=== PATIENT | male | born 1980 | race Caucasian/White ===

== ENCOUNTER 2025-09-14 10:52 | Emergency (ER) | payer OTHER, SELFPAY ==
[2025-09-14 10:56] VITALS: BP 154/89; PULSE 89; TEMP 37; O2SAT 97; BMI 32.1
--- NOTE | 2025-09-14 11:00 | XR_ITS ---
The [address] [address] Patient Name: PRETTY LEROY MRN: [id number] date: 1980 Sex: M Assigned Patient Location: ED.MAIN Current Patient Location: Accession/Order Number: [id number] Exam Date: 09/14/2025 11:08 Report Date: 09/14/2025 11:31 At the request of: JASWANT LEMOS MD Procedure: XR foot RT min 3V RIGHT FOOT - 3 views CLINICAL DATA: Atraumatic pain, swelling and erythema at the first metatarsal phalangeal joint. COMPARISON: None AP, lateral and oblique views were obtained. There is no evidence of fracture or dislocation. There are no significant soft tissue abnormalities. XR/XR foot RT min 3V IMPRESSION: NO ACUTE BONY FINDINGS. Impression dictated by: Rae Bear M.D. 09/14/2025 11:31 AM Dictation Location: [place] [address] Electronically authenticated by: [id number] Y Date: 09/14/2025 11:31
--- NOTE | 2025-09-14 11:02 | ED.GENADUL1 ---
HPI HPI - General Adult General Chief complaint: Extremity Problem, Nontraumatic Stated complaint: R FOOT PAIN Time Seen by Provider: 09/14/25 10:53 Source: patient Mode of arrival: walk-in Limitations: no limitations History of Present Illness HPI narrative: 45-year-old male presents to the emergency department for pain to the right great toe. It hurts at the base and there was no injury and he has had it for a few days. He has never had gout before or symptoms like this. The pain is moderate and it is sensitive to touch. Related Data Previous Rx's ?Medication ?Instructions ?Recorded indomethacin 25 mg capsule See Rx Instructions .Route 09/14/25 .COMPLEX #40 caps Allergies Allergy/AdvReac Type Severity Reaction Status Date / Time opioids AdvReac Severe intolerance Uncoded 09/14/25 11:02 Opioid HPI Opioid Management Most Recent Opioid Data: Last Pain Scale 8 Today, 10:56 Review of Systems ROS Narrative A ten point review of systems is negative except as noted above. PFSH PFSH Social History Little interest or pleasure in doing things: not at all Feeling down, depressed, or hopeless: not at all Exam Narrative Exam Narrative: Nurses note and vital signs reviewed General:The patient appears well and in no apparent distress.Patient is resting comfortably on cart. Skin:Warm, dry, no pallor noted.There is no rash noted. Head:Normocephalic, atraumatic Eye: Normal conjunctiva, no drainage Ears, Nose, Mouth, and Throat: oral mucosa is moist. Nares patent. Cardiovascular:Regular Rate and Rhythm Respiratory:Patient is in no distress, no accessory muscle use GI: Soft and nontender Musculoskeletal: There is erythema and tenderness of the the first MTP joint of the right foot. No break in the skin. No open area or drainage. Dorsalis pedis pulse 2+ Neurological:A&O, normal speech Psychiatric:Cooperative Constitutional Vital Signs, click to edit/add: Last Vital Signs Temp 98.6 F 09/14/25 10:56 Pulse 89 09/14/25 10:56 Resp 20 09/14/25 10:56 BP 154/89 H 09/14/25 10:56 Pulse Ox 97 09/14/25 10:56 O2 Del Method Room Air 09/14/25 10:56 Course Vital Signs Vital signs: Vital Signs Temperature 98.6 F 09/14/25 10:56 Pulse Rate 89 09/14/25 10:56 Respiratory Rate 20 09/14/25 10:56 Blood Pressure 154/89 H 09/14/25 10:56 Pulse Oximetry 97 09/14/25 10:56 Oxygen Delivery Method Room Air 09/14/25 10:56 Temperature 98.6 F 09/14/25 10:56 Pulse Rate 89 09/14/25 10:56 Respiratory Rate 20 09/14/25 10:56 Blood Pressure 154/89 H 09/14/25 10:56 Pulse Oximetry 97 09/14/25 10:56 Oxygen Delivery Method Room Air 09/14/25 10:56 Medical Decision Making MDM Narrative Medical decision making narrative: X-ray of the foot on my interpretation shows no acute findings. My clinical impression is that he has gout. He has intolerance to narcotics and is prescribed indomethacin. He will follow-up with podiatry. Treatment diagnosis and follow-up were discussed with the patient. Differential Diagnosis Differential Diagnosis: Gout, toe sprain, fracture, arthritis Imaging Data Foot x-ray: My impression: No acute findings Discharge Plan Discharge Chief Complaint: Extremity Problem, Nontraumatic Clinical Impression: Gout Patient Disposition: Home, Self-Care Time of Disposition Decision: 11:21 Condition: Good Mode of Transportation: Private Vehicle Prescriptions / Home Meds: New indomethacin 25 mg capsule See Rx Instructions .ROUTE .COMPLEX Qty: 40 0RF Rx Instructions: 2 p.o. every 8 hours for 3 days then 1 p.o. every 8 hours for 3 days then 1 p.o. every 8 hours as needed Print Language: Hungarian Instructions: Low Purine Diet (ED), Gout (ED) Referrals: RAYRAY TAN [Primary Care Provider, Family Practice] - 1 week Raffi Mondragon DPM [Physician, Podiatry]
--- OUTSIDE RECORDS SUMMARY | 2025-09-14 11:08 | XMS_ITS | Encounter Summary ---
Author Organization [facility] s tem Address [facility] [address] [place] [address] Care Team Providers Care Product Controller Name Role Phone Suzie Pena Judith HARDWARE DEVELOPER-PRE OWNED SALES MANAGER Primary Care Provider + Encounter Details DateTypeDepartmentCare Team (Latest Contact Info)Woimrjqqvgk07/23/2025Results Follow-Up [facility] [address] [place] [address] Rashad Patel, DO [address] [facility], [place] [address] Testosterone, TSH with Reflex, Lipid profile, Additional followed-up results: 2 Social History Tobacco UseTypesPacks/DayYears UsedDateSmoking Tobacco: Light SmokerCigarettes 0.324.2Started: 07/12/2001Smokeless Tobacco: NeverAlcohol UseStandard Drinks/WeekCommentsYes7 (1 standard drink = 0.6 oz pure alcohol)whiskeyOverall Financial Resource Strain (CARDIA)AnswerDate RecordedHow hard is it for you to pay for the very basics like food, housing, medical care, and heating?Not very hard07/21/2022HQ-2AnswerDate RecordedTotal Enyhx420[facility] [place] of Occupational Health - Occupational Stress QuestionnaireAnswerDate RecordedDo you feel stress - tense, restless, nervous, or anxious, or unable to sleep at night because yourmind is troubled all the time - these days?Only a ozqqif3007/21/2022 Exercise Vital SignAnswerDate RecordedOn average, how many days per week do you engage in moderate to strenuous exercise (like a brisk walk)?0 days07/21/2022n average, how many minutes do you engage in exercise at this level?0 min 07/21/2022RAPARE - TransportationAnswerDate RecordedIn the past 12 months, has lack of transportation kept you from medical appointments or from getting medications?No07/21/2022In the past 12 months, has lack of transportation kept you from meetings, work, or from getting things needed for daily living?No 07/21/2022hildcareAnswerDate RecordedDo problems getting child care associate teacher make it difficult for you to work or study?No07/21/2022EmploymentAnswerDate RecordedDo you need help finding a local career center and/or a training program?No 07/21/2022Hunger ScreeningAnswerDate RecordedWithin the past 12 months we worried whether our food would run out before we got money to buy more.Never True07/03/2025Within the past 12 months the food we bought just didn't last and we didn't have money to get more.Never True07/03/2025Purpose - LifeAnswerDate RecordedI have a purpose and direction in my life.Strongly Agree07/21/2022ex and Gender InformationValueDate RecordedSex Assigned at BirthNot on fileLegal GdnQjim9905/17/2015 12:06 PM EDTGender IdentityNot on fileSexual OrientationNot on filedocumented as of this encounter Miscellaneous Notes * Telephone Encounter - Camryn Joseph CMA - 07/04/2025 4:38 PM EDT Pt was agreeable to taking the Atorvastatin twice daily. Thank you. documented in this encounter Plan of Treatment DateTypeDepartmentCare Team (Latest Contact Info)Qmcsmygiifd16/23/2026 8:30 AM EDTOffice Visit [facility] [address] [place] [id number] Rashad Patel, DO [address] [place] [address] documented as of this encounter Visit Diagnoses Not on filedocumented in this encounter Additional Health Concerns AssessmentNoted TimePHQ-9 Depression Total Score: 9:14 AM EDTA Body Mass Index follow-up plan has been documented for the zbxupfu6307/03/2025 11:40 AM EDTdocumented as of this encounter Care Teams Team MemberRelationshipSpecialtyStart DateEnd Date Suzie Pena, HARDWARE DEVELOPER-PRE OWNED SALES MANAGER [address] [place] [address] PCP - GeneralInternal Medicine12/25/22documented as of this encounter
--- OUTSIDE RECORDS SUMMARY | 2025-09-14 11:08 | XMS_ITS | Encounter Summary ---
Author Organization [facility] Address [address] [place] [address] Phone Care Team Providers Care Supervisor Safety Deposit Name Role Phone Rashad Patel DO Primary Care Provider + [phone] Reason for Visit * ReasonOnset DateCommentsMedical Advice/Zpwceglk61/02/2025 Encounter Details DateTypeDepartmentCare Team (Latest Contact Info)Zfupacegxax19/02/2025Telephone [facility] [address] [address] Earlene Kamara LPN Medical Advice/Question Social History Tobacco UseTypesPacks/DayYears UsedDateSmoking Tobacco: Every DayCigarettes Smokeless Tobacco: NeverAlcohol UseStandard Drinks/WeekCommentsYes0 (1 standard drink = 0.6 oz pure alcohol)Sex and Gender InformationValueDate RecordedSex Assigned at BirthNot on fileLegal SxoYjuk4111/22/2024 2:25 PM ESTGender Identity Not on fileSexual OrientationNot on filedocumented as of this encounter Miscellaneous Notes * Telephone Encounter - Patricia Suarez LPN - 09/13/2025 2:09 PM EST Phoned patient states his leg shakes and tremors have resolved. He has been having chest pain and palpitations, SOB. BP ranging around 147/98 HR 92. Has been having random elevation in HR while resting. Inquiring about new orders to control HR.please advise. To Dr. Ten Shay MD for review. * Telephone Encounter - Earlene Kamara LPN - 09/12/2025 3:27 PM EST Patient left VM that since the Flecainide holiday, the tremors have stopped but still having palpitations. Holiday started 08/29/2025. Phoned patient back to get more information. Detailed VM left toget more information. documented in this encounter Plan of Treatment DateTypeDepartmentCare Team (Latest Contact Info)Ibkpmgkfhha04/04/2026 9:50 AM EDTOffice Visit [facility] [address] [facility] [address] [place] [address] Ten Shay MD [address] [facility] [address] [place] [address] documented as of this encounter Visit Diagnoses Not on filedocumented in this encounter Care Teams Team MemberRelationshipSpecialtyStart DateEnd Date Rashad Patel DO [address] [place] [address] PCP - GeneralFamily Ritrrutf20/18/25documented as of this encounter
--- OUTSIDE RECORDS SUMMARY | 2025-09-14 11:08 | XMS_ITS | Clinical Summary ---
Author Organization [facility] Address [address] [place] [address] Care Team Providers Care Network Solutions Architect Name Role Phone Unavailable Primary Care Provider Unavailabl e Social History Tobacco UseTypesPacks/DayYears UsedDateSmoking Tobacco: Never AssessedSex and Gender InformationValueDate RecordedSex Assigned at BirthNot on fileLegal Sex Male04/09/2022 10:51 PM EDTGender IdentityNot on fileSexual OrientationNot on file Last Filed Vital Signs Vital SignReadingTime TakenCommentsBlood Yxppsabd306/8606 10:28 AM EDT Rhobj8385 12:39 PM ESTTemperature--Respiratory Rate--Oxygen Saturation 98%03/30/2020 10:27 AM EDTInhaled Oxygen Concentration--Sjpvll053 kg (230 lb) 03/30/2020 10:25 AM ZXYNgxgzi465.3 cm (5' 11 )03/30/2020 10:23 AM EDTBody Mass Index32.0803/30/2020 10:23 AM EDT Plan of Treatment Not on file
--- OUTSIDE RECORDS SUMMARY | 2025-09-14 11:08 | XMS_ITS | Clinical Summary ---
Author Organization [facility] Address [address] [place] [address] Care Team Providers Care Bindery Machine Setter Name Role Phone Unavailable Primary Care Provider Unavailabl e Allergies Active AllergyReactionsCriticalityNoted DateCommentsOtherGI intolerance,Headache 07/21/2022 Opioids Medications MedicationSigDispense QuantityRefillsLast FilledStart DateEnd DateStatus busPIRone (Buspar) 10 MG tablet Take 10 mg by mouth in the morning.Active metoprolol succinate XL (Toprol-XL) 25 MG 24 hr tablet Take 25 mg by mouth in the morning.ctive cloNIDine (Catapres) 0.1 MG tablet TAKE 1 TABLET BY MOUTH EVERY MORNING & AT BEDTIMEActive atorvastatin (Lipitor) 10 MG tablet Take 10 mg by mouth in the morning.Active lisinopril 40 MG tablet Take 40 mg by mouth in the morning.5Active aspirin 81 MG EC tablet Take 81 mg by mouth in the morning.ctive flecainide (Tambocor) 50 MG tablet Take 50 mg by mouth in the morning and 50 mg in the evening. Active Active Problems No known active problems Social History Tobacco UseTypesPacks/DayYears UsedDateSmoking Tobacco: NeverSmokeless Tobacco: Never Tobacco Cessation:Counseling Given: Not Answered Sex and Gender InformationValueDate RecordedSex Assigned at BirthNot on file Legal IziNpad4603/22/2025 12:51 PM EDTGender IdentityNot on fileSexual Orientation Not on file Plan of Treatment DateTypeDepartmentCare Team (Latest Contact Info)Utlgmpcuywf54/01/2026 9:40 AM EDTOffice Visit [facility] [address] [place] [address] Stephanie Morrison PA [address] [place] [address] Health MaintenanceDue DateLast DoneCommentsCT Aqiaoyvwgnfm1980Colonoscopy 1980Colorectal Cancer Djtqfihtt1980FIT-DNA1980FIT1980 FOBT05/19/19805884Uiupwthktgfuh1980COVID-19 Vaccine (2024- season) , 06/27/2021Influenza Vaccine (#1)2025Pneumococcal Vaccine: Pediatrics (0 to 5 Years) and At-Risk Patients (6 to 64 Years)Aged Out No longer eligible based on patient's age to complete this topic Insurance
--- OUTSIDE RECORDS SUMMARY | 2025-09-14 11:08 | XMS_ITS | Clinical Summary ---
Author Organization [facility] Address [address] [place] [address] Phone Care Team Providers Care Combine Inspector Name Role Phone Rashad Patel DO Primary Care Provider [phone] [phone] Allergies Active AllergyReactionsCriticalityNoted DateCommentsOpioids-Meperidine And RelatedHeadache,Nausea/yseafmcc38/10/2025 Medications MedicationSigDispense QuantityRefillsLast FilledStart DateEnd DateStatus busPIRone (Buspar) 10 mg tablet Take 1 tablet (10 mg) by mouth early in the morning..09/05/2024ctive lisinopril 40 mg tablet Take 1 tablet (40 mg) by mouth once daily in the morning. Take before meals. Active cloNIDine (Catapres) 0.1 mg tablet Take 1 tablet (0.1 mg) by mouth 2 times a day.Active aspirin 81 mg EC tablet Indications:Atrial fibrillation/flutter (Multi)Take 1 tablet (81 mg) by mouth once daily. 90 tablet 11:53 AM ctive flecainide (Tambocor) 50 mg tablet Indications:Atrial fibrillation/flutter (Multi)Take 1 tablet (50 mg) by mouth 2 times a day. 180 tablet 11:53 AM ctive metoprolol succinate XL (Toprol XL) 25 mg 24 hr tablet Indications:TachycardiaTake 1 tablet (25 mg) by mouth once daily. Do not crush or chew. 90 tablet 11:52 AM ESTctive atorvastatin (Lipitor) 80 mg tablet Indications:Mixed hyperlipidemiaTake 1 tablet (80 mg) by mouth once daily. 90 tablet ctive atorvastatin (Lipitor) 10 mg tablet Take 1 tablet (10 mg) by mouth once daily.08/29/2025Discontinued(Reorder) Active Problems ProblemNoted DateDiagnosed DateAtrial fibrillation/tqcyzgs3112/19/2024Essential nwyotzlwzfct99/10/2025Mixed dkhjrxgxuyqeic66/10/2025MI 31.0-31.9,adult 12/19/2024urrent xaxokd4312/19/2024Obstructive sleep apnea12/19/2024 Encounters DateTypeDepartmentCare SarzHfsadwmzixq04/02/2025Telephone [address] [address] Earlene Kamara LPN Medical Advice/Rwrakbxz04/18/2025 8:50 AM ESTOffice Visit [address] [address] Ten Shay MD Atrial fibrillation/flutter (Multi) (Primary Dx); Essential hypertension; Mixed hyperlipidemia; BMI 31.0-31.9,adult; Obstructive sleep apnea; Current smoker Discharge Disposition: Home08/29/2025Travelfrom Last 3 Months Family History Medical HistoryRelationNameCommentsNo Known ProblemsFatherNo Known Problems MotherRelationNameStatusCommentsFatherMother Social History Tobacco UseTypesPacks/DayYears UsedDateSmoking Tobacco: Every DayCigarettes Smokeless Tobacco: Never Tobacco Cessation:Ready to Q uit: Not Asked; Counseling Given: Yes Alcohol UseStandard Drinks/WeekCommentsYes0 (1 standard drink = 0.6 oz pure alcohol)Sex and Gender InformationValueDate RecordedSex Assigned at BirthNot on fileLegal HxaNuoh9511/22/2024 2:25 PM ESTGender IdentityNot on fileSexual OrientationNot on file Last Filed Vital Signs Vital SignReadingTime TakenCommentsBlood Ejxkjozu392/8608/29/2025 8:32 AM EST Jorfo659308/29/2025 8:32 AM ESTTemperature--Respiratory Rate--Oxygen Saturation-- Inhaled Oxygen Concentration--Zsabiq614 kg (229 lb)08/29/2025 8:32 AM ESTHeight 180.3 cm (5' 11 )08/29/2025 8:32 AM ESTBody Mass Index31.9408/29/2025 8:32 AM EST Plan of Treatment DateTypeDepartmentCare Team (Latest Contact Info)Pfjsgfybljy78/04/2026 9:50 AM EDTOffice Visit [facility] [address] [facility] [address] [place] [address] Ten Shay MD [address] [facility] [address] [place] [address] Health MaintenanceDue DateLast DoneCommentsCT Svgtnqvafgxk1980Colonoscopy 1980FIT1980HIV Lzvyjqzuh1980Lipid Panel1980igmoidoscopy 1980MMR Vaccines (1 of 1 - Standard series)1981Diabetes Screening 1998Hepatitis C Mkopdbnzu44/08/1998Hepatitis B Vaccines (1 of 3 - 19+ 3- dose series)1999Pneumococcal Vaccine: Pediatrics and At-Risk Adult Patients (1 of 2 - PCV)1999HPV Vaccines (1 - 3-dose standard series) 2007Influenza Vaccine (#1)5COVID-19 Vaccine (1 - 2024- season) 5Yearly Adult Njoxvypq97/, 07/01/2024, 07/21/2022 Colorectal Cancer Orayeccyn72/07/2028FIT-DNA (Cologuard) Zoster Vaccines (1 of 2)2030DTaP/Tdap/Td Vaccines (3 - Td or Tdap) /, 07/12/2014HIB VaccinesAged OutNo longer eligible based on patient's age to complete this topicHepatitis A VaccinesAged OutNo longer eligible based on patient's age to complete this topicIPV VaccinesAged OutNo longer eligible based on patient's age to complete this topicMeningococcal VaccineAged OutNo longer eligible based on patient's age to complete this topic Rotavirus VaccinesAged OutNo longer eligible based on patient's age to complete this topic Procedures Procedure NamePriorityDate/TimeAssociated DiagnosisCommentsECG 12-LEADRoutine 08/29/2025 8:50 AM EST Atrial fibrillation/flutter (Multi) from Last 3 Months Results * ECG 12 Lead (08/29/2025 8:50 AM EST)Specimen (Source)Anatomical Location / LateralityCollection Method / VolumeCollection TimeReceived Time Narrative CPACS - 08/29/2025 9:38 AM EST Normal sinus rhythm with nonspecific ST-T changes Authorizing ProviderResult TypeResult StatusMourhaf KyleBronson [facility] ORDERABLES Final ResultPerforming OrganizationAddressCity/State/ZIP CodePhone Number CPACS from Last 3 Months Insurance Care Teams Team MemberRelationshipSpecialtyStart DateEnd Date Rashad Patel DO [address] [facility], [place] [address] [facility] - [facility] Uuszaoor61/18/25
--- OUTSIDE RECORDS SUMMARY | 2025-09-14 11:08 | XMS_ITS | Clinical Summary ---
Author Organization [employer] [facility] tem Address [id number] [address] [place] [address] Care Team Providers Care Security Shift Supervisor Name Role Phone Suzie Pena APRN-ROCKET SCIENTIST Primary Care Provider + Allergies Active AllergyReactionsCriticalityNoted NxobTemskbaiAbdnbthzkzi60/30/2018 All opioids Opioids-Meperidine And Mlwwzny7707/21/2022 Medications MedicationSigDispense QuantityRefillsLast FilledStart DateEnd DateStatus cloNIDine (CATAPRES) 0.1 mg tablet TAKE 1 TABLET BY MOUTH TWICE DAILY (IN THE MORNING and BEFORE bedtime) 60 tablet 5Active busPIRone (BUSPAR) 10 mg tablet TAKE 1 TABLET BY MOUTH IN THE MORNING 90 tablet 5Active lisinopriL (PRINIVIL,ZESTRIL) 40 mg tablet TAKE 1 TABLET BY MOUTH IN THE MORNING 90 tablet 5Active metoprolol succinate XL (TOPROL XL) 25 mg 24 hr tablet Take 1 tablet (25 mg total) by mouth in the morning.Active aspirin 81 mg Take 1 tablet (81 mg total) by mouth in the morning.Active flecainide (TAMBOCOR) 50 mg tablet Take 1 tablet (50 mg total) by mouth in the morning and 1 tablet (50 mg total) before bedtime.Active atorvastatin (LIPITOR) 80 mg tablet Take 1 tablet (80 mg total) by mouth in the morning. 90 tablet 5Active Active Problems ProblemNoted DateDiagnosed DateNicotine use10/10/20224841Vwvxoue09/10/2022Herniation of intervertebral disc of lumbar spine with xlsryvdo18/26/2020Closed fracture of ankle07/14/2017Degeneration of lumbar intervertebral disc07/14/2017Class 1 obesity with serious comorbidity and body mass index (BMI) of 30.0 to 30.9 in adult07/14/2017Chronic low back pain12/25/2016Essential ctvuptsauvdy09/16/2017 Nokkncqrtgilba21/16/2017Sleep apnea12/25/2016Paroxysmal atrial fibrillation 04/09/2012Lyme xvujpgk2712/31/1988 Resolved Problems ProblemNoted DateDiagnosed DateResolved DateSleep apnea Atrial dpqjmineqyng94 Encounters DateTypeDepartmentCare HqzpYieirclpxlx35/12/2025Orders Only [facility] [address] [place] [address] Rashad Patel, 07/05/2025Orders Only [facility] - [facility] [address] [place] [address] Rashad Patel, 07/04/2025[facility] [address] [place] [address] Rashad Patel, Testosterone, TSH with Reflex, Lipid profile, Additional followed-up results: 2 07/03/2025 9:30 AM EDTOffice Visit [facility] [address] [place] [address] Rashad Patel, Well adult exam (Primary Dx); Mixed hyperlipidemia; Essential hypertension; Paroxysmal atrial fibrillation ([facility]); Other fatigue; Class 1 obesity with serious comorbidity and body mass index (BMI) of 30.0 to 30.9 in adult, unspecified obesity type; Screen for colon cancer; Weakness; Cold jywmyitmjsg68/22/2025Travelfrom Last 3 Months Immunizations ImmunizationAdministration DatesNext EatUpqx7107/01/2024,07/12/2014 Family History Medical HistoryRelationNameCommentsNo Known ProblemsBrotherHigh Cholesterol FatherHypertensionFatherHigh CholesterolMotherHypertensionMotherRelationName StatusCommentsBrotherAliveFatherAliveMotherAliveSon 1AliveSon 2Alive Social History Tobacco UseTypesPacks/DayYears UsedDateSmoking Tobacco: Light SmokerCigarettes 0.324.2Started: 07/12/2001Smokeless Tobacco: NeverAlcohol UseStandard Drinks/WeekCommentsYes7 (1 standard drink = 0.6 oz pure alcohol)whiskeyOverall Financial Resource Strain (CARDIA)AnswerDate RecordedHow hard is it for you to pay for the very basics like food, housing, medical care, and heating?Not very hard07/21/2022HQ-2AnswerDate RecordedTotal Pgoxv611[facility] [place] of Occup[facility] - Occupational Stress QuestionnaireAnswerDate RecordedDo you feel stress - tense, restless, nervous, or anxious, or unable to sleep at night because yourmind is troubled all the time - these days?Only a cnahmu1107/21/2022 Exercise Vital SignAnswerDate RecordedOn average, how many [...] living?No 07/21/2022hildcareAnswerDate RecordedDo problems getting child care 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 to work [...] InformationValueDate RecordedSex Assigned at BirthNot on fileLegal UjgFdap4105/17/2015 12:06 PM EDTGender IdentityNot on fileSexual OrientationNot on file Last Filed Vital Signs Vital SignReadingTime TakenCommentsBlood Zqdkcrpx189/7809 9:15 AM EDT Zangj982007/03/2025 9:15 AM EYBYmbjbyhjmzg07.5 ??C (97.7 ??F)07/03/2025 9:15 AM EDTRespiratory Szbw132207/03/2025 9:15 AM EDTOxygen Qjnwfmxtku58%07/03/2025 9:15 AM EDTInhaled Oxygen Concentration--Zdrouk32.4 kg (217 lb)07/03/2025 9:15 AM EDT Zjnobm746.3 cm (5' 10.98 )07/03/2025 9:15 AM EDTBody Mass Index30.28007/03/2025 9:15 AM EDT Plan of Treatment DateTypeDepartmentCare Team (Latest Contact Info)Tgkngjvopbr04/23/2026 8:30 AM EDTOffice Visit [facility] [address] [place] [address] Rashad Patel, [address] [place] [address] Health MaintenanceDue DateLast DoneCommentsTobacco Eovytdrzse1980Adult BMI Follow Up Plandult BMI Burzprlqp29 Depression Brimeewsm71Tobacco Txfhdvbqt03 Colon Cancer Screening 3 Year Crwwlxgsn56, 07/18/2025DTaP,Tdap and Td Vaccines (3 - Td or Tdap), 07/12/2014COVID-19 Vaccine Zdltnubbexnw13/08/2021, 06/27/2021Influenza VaccineDiscontinued Medical Devices Not on file Procedures Procedure NamePriorityDate/TimeAssociated DiagnosisCommentsCOLOGUARD NON-TOHAMAVNVZzenbgi15/07/2025 12:20 PM EDT Screen for colon cancer HC DIRECT IDUUsgxcau06/22/2025 9:49 AM EDT Well adult exam COMPREHENSIVE METABOLIC FQFIOAweogtl56/22/2025 9:49 AM EDT Well adult exam LIPID STNOUWHBbqrblo66/22/2025 9:49 AM EDT Well adult exam TSH WITH FYJCLWDvjzqjy77/22/2025 9:49 AM EDT Well adult exam Paroxysmal atrial fibrillation (CMS-HCC) Other fatigue YXLXGYKUAUQXRgnjwww57/22/2025 9:49 AM EDT Other fatigue from Last 3 Months Results * Cologuard Non-[facility] (07/18/2025 12:20 PM EDT)ComponentValueRef RangeTest MethodAnalysis TimePerformed AtPathologist SignatureEXTERNAL COLOGUARDNegative Niefvjvz42/12/2025 1:29 AM EDTEXACT Alleantia (CLIA #:[id number]) Comment: The Cologuard (TM) test was performed on this specimen. NEGATIVE TEST RESULT. A negative Cologuard result indicates a low likelihood that a colorectal cancer (CRC) or advanced adenoma (adenomatous polyps with more advanced pre-malignant features) is present. The chance that a person with a negative Cologuard test has a colorectal cancer is less than 1 in 1500 (negative predictive value >99.9%) or has an advanced adenoma is less than 5.3% (negative predictive value 94.7%). These data are based on a prospective cross-sectional study of 10,000 individuals at average risk for colorectal cancer who were screened with both Cologuard and colonoscopy. (Dougie Akers al, N Engl J Med 2014;370(14):6370-0604) The normal value (reference range) for this assay is negative. COLOGUARD RE-SCREENING RECOMMENDATION: Periodic colorectal cancer screening is an important part ofpreventive healthcare for asymptomatic individuals at average risk for colorectal cancer. Followinga negative Cologuard result, the [place] [employer] and U.S. Multi-Society Task Force screening guidelines recommend a Cologuard re-screening interval of 3 years. References: [place] [employer] Guideline for Colorectal Cancer Screening: https://www.cancer.or g/cancer/sbhgp-jjwtbm-gvjjvt/ahfazzpof-zmapbxdpz-caewxkd/acs-recommendations.htm hudson.; Chepe FONTANEZ, Gretchen FLORES, Jeremy MerchantK, Colorectal Cancer Screening: Recommendations for Physicians and Patients from the U.S. Multi-Society Task Force on Colorectal Cancer Screening , Am J Gastroenterology 2017; 112:3236-1825. TEST DESCRIPTION: Composite algorithmic analysis of stool DNA-biomarkers with hemoglobin immunoassay. ?? Quantitative values of individual biomarkers are not reportable and are not associated with individual biomarker result reference ranges. Cologuard is intended for colorectal cancer screening ofadults of either sex, 45 years or older, who are at average-risk for colorectal cancer (CRC). Cologuard has been approved for use by the U.S. FDA. The performance of Cologuard was established in a cross sectional study of average-risk adults aged 50-84. Cologuard performance in patients ages 45 to 49 years was estimated by sub-group analysis of near-age groups. Colonoscopies performed for a positive result may find as the most clinically significant lesion: colorectal cancer [4.0%], advanced adenoma (including sessile serrated polyps greater than or equal to 1cm diameter) [20%] or non- advanced adenoma [31%]; or no colorectal neoplasia [45%]. These estimates are derived from a prospective cross-sectional screening study of 10,000 individuals at average risk for colorectal cancer who were screened with both Cologuard and colonoscopy. (Dougie Akers al, N Engl J Med 2014;370(14):5830-2684.) Cologuard may produce a false negative or false positive result (no colorectal cancer or precancerous polyp present at colonoscopy follow up). A negative Cologuard test result does not guarantee the absence of CRC or advanced adenoma (pre-cancer). The current Cologuard screening interval is every 3 years. ([place] [employer] and U.S. Multi-Society Task Force). Cologuard performance data in a 10,000 patient pivotal study using colonoscopy as the reference method can be accessed at the following location: www.Atieva/results. Additional description of the Cologuard test process, warnings and precautions can be found at www.Celirord.com. Specimen (Source)Anatomical Location / LateralityCollection Method / Volume Collection TimeReceived TimeStool specimen (specimen)Rectum structure / Unknown 07/18/2025 12:20 PM EDT1 2:23 PM EDT Narrative Authorizing ProviderResult TypeResult StatusDennis G Furlong DOLAB ORDERABLES Final ResultPerforming OrganizationAddressCity/State/ZIP CodePhone Number [facility] (CLIA #:[id number]) [address] [place] [address], * Rdldl Direct Ldl (07/03/2025 9:49 AM EDT)ComponentValueRef RangeTest Method Analysis TimePerformed AtPathologist SignatureDIRECT GPK923<=130 mg/dL 07/03/2025 9:33 PM [facility] LABORATORYComment: LDL <100 mg/dL - Desirable LDL 130-159 mg/dL - Borderline High Risk LDL >160 mg/dL - High Risk Specimen (Source)Anatomical Location / LateralityCollection Method / Volume Collection TimeReceived TimeBloodVenous blood / Qfvtzkz3507/03/2025 9:49 AM EDT 07/03/2025 9:49 AM EDT Narrative Authorizing ProviderResult TypeResult StatusDennis G Furlong DOLAB ORDERABLES Final ResultPerforming OrganizationAddressty/State/ZIP CodePhone Number [facility] [address] [place] [address], [place] [phone] * TSH with Reflex (07/03/2025 9:49 AM EDT)ComponentValueRef RangeTest Method Analysis TimePerformed AtPathologist SignatureTSH2.750.49 - 4.67 uIU/mL 07/03/2025 9:24 PM [facility] LABORATORYSpecimen (Source) Anatomical Location / LateralityCollection Method / VolumeCollection Time Received TimeBloodVenous blood / Smgvbbi1407/03/2025 9:49 AM EDT07/03/2025 9:49 AM EDT Narrative Authorizing ProviderResult TypeResult StatusDennis G Furlong DOLAB BLOOD ORDERABLESFinal ResultPerforming OrganizationAddressty/State/ZIP CodePhone Number [facility] [address] [place] [address] [address] [place] [address], * Testosterone (07/03/2025 9:49 AM EDT)ComponentValueRef RangeTest Method Analysis TimePerformed AtPathologist SignatureTESTOSTERONE2.581.68 - 7.46 ng/mL07/03/2025 9:16 PM [facility] LABORATORYSpecimen (Source)Anatomical Location / LateralityCollection Method / VolumeCollection TimeReceived TimeBloodVenous blood / Agmlidz3607/03/2025 9:49 AM EDT07/03/2025 9:49 AM EDT Narrative Authorizing ProviderResult TypeResult StatusDennis G Furlong DOLAB BLOOD ORDERABLESFinal ResultPerforming OrganizationAddressCity/State/ZIP CodePhone Number [facility] [address] [place] [address] [address] [place] [phone], * (ABNORMAL) Lipid profile (07/03/2025 9:49 AM EDT)ComponentValueRef RangeTest MethodAnalysis TimePerformed AtPathologist IzcfouhfiJPZLHTKQZMJ000(H)150 - 200 mg/dL07/03/2025 9:21 PM [facility] AIEKSFTIKVPRGANMHFIPEQ978 (H)27 - 150 mg/dL07/03/2025 9:21 PM [facility] LABORATORYHDL LLAVKSBOERV06>39 mg/dL07/03/2025 9:21 PM [facility] LABORATORYComment: HDL <40 mg/dL - High Risk HDL > or = 40mg/dL- Desirable HDL >60 mg/dL - Negative Risk CHOLESTEROL:HDL3.21.0 - 5.009/ 9:21 PM [facility] LABORATORYVERY LOW CTRLIAKMWVO913(H)0 - 30 mg/dL07/03/2025 9:21 PM [facility] LABORATORYSpecimen (Source)Anatomical Location / Laterality Collection Method / VolumeCollection TimeReceived TimeBloodVenous blood / Ylrlgvd4407/03/2025 9:49 AM EDT07/03/2025 9:49 AM EDT Narrative [facility] - 07/03/2025 9:21 PM EDT LDL (CALC) Not reported due to high Triglyceride Authorizing ProviderResult TypeResult StatusDennis G Furlong DOLAB BLOOD ORDERABLESFinal ResultPerforming OrganizationAddressCity/State/ZIP CodePhone Number [facility] [address] [place] [phone], * Comprehensive metabolic panel (07/03/2025 9:49 AM EDT)ComponentValueRef Range Test MethodAnalysis TimePerformed AtPathologist JkzmepifvSILIJB847736 - 146 mmol/L07/03/2025 9:16 PM [facility] LABORATORYPOTASSIUM4.83.5 - 5.0 mmol/L07/03/2025 9:16 PM [facility] LABORATORYCHLORIDE 9898 - 109 mmol/L07/03/2025 9:16 PM [facility] CARBON LJPVULY4902 - 32 mmol/L07/03/2025 9:16 PM [facility] LABORATORYANION GAP95 - 15 mmol/L07/03/2025 9:16 PM [facility] LABORATORYBLOOD UREA EWXAQKYQ196 - 23 mg/dL07/03/2025 9:16 PM [facility] LABORATORYCREATININE1.000.60 - 1.30 mg/dL07/03/2025 9:16 PM [facility] LABORATORYComment:METHOD TRACEABLE TO IDMS JOKPXPJBNHWIVLY7975 - 99 mg/dL07/03/2025 9:16 PM [facility] CHAGRUVIEGEBIDJTN64.08.5 - 10.5 mg/dL07/03/2025 9:16 PM [facility] LABORATORYTOTAL PROTEIN7.86.0 - 8.0 g/dL07/03/2025 9:16 PM [facility] LABORATORYALBUMIN4.93.2 - 5.3 g/dL07/03/2025 9:16 PM EDT [facility] LABORATORYALKALINE XMOUTOYNVBQ0597 - 130 U/L 07/03/2025 9:16 PM [facility] HSDLKQDWFIIJL02<=41 U/L 07/03/2025 9:16 PM [facility] CIOGRFOGQDABY87<=40 U/L 07/03/2025 9:16 PM [facility] LABORATORYBILIRUBIN,TOTAL0.90.3 - 1.2 mg/dL07/03/2025 9:16 PM [facility]ORYEGFR Non- Race Dependent>90>=60 ml/min/1.73sq.m007/03/2025 9:16 PM [facility] LABORATORYComment: Reported eGFR is based on the CKD-EPI 2020 equation that does not use a race coefficient. Specimen (Source)Anatomical Location / LateralityCollection Method / Volume Collection TimeReceived TimeBloodVenous blood / Wfkacpm7307/03/2025 9:49 AM EDT 07/03/2025 9:49 AM EDT Narrative Authorizing ProviderResult TypeResult StatusDennis G Furlong DOLAB BLOOD ORDERABLESFinal ResultPerforming OrganizationAddressCity/State/ZIP CodePhone Number [facility] [address] [place] [address], from Last [address] [place] [address] Care Teams Team MemberRelationshipSpecialtyStart DateEnd Date Suzie Pena, SAFETY AIDE-ROCKET SCIENTIST [address] [place] [address] PCP - GeneralInternal Medicine12/25/22
--- OUTSIDE RECORDS SUMMARY | 2025-09-14 11:09 | XMS_ITS | Clinical Summary ---
Author Organization [facility] Address [address], [address] [place] [address] Care Team Providers Care Radius Grinder Name Role Phone Rashad Patel Primary Care Provider [phone] Allergies Active AllergyReactionsCriticalityNoted EsaaNhtrexteZcjhmrtsvsp76/30/2018 All opioids Medications MedicationSigDispense QuantityRefillsLast FilledStart DateEnd DateStatus atorvastatin (LIPITOR) 10 MG tablet Take 10 mg by mouth dailyActive apixaban (ELIQUIS) 5 MG TABS tablet Take by mouth 2 times dailyActive diltiazem (CARDIZEM CD) 240 MG extended release capsule Take 240 mg by mouth dailyActive Active Problems No known active problems Family History Medical HistoryRelationNameCommentsArthritisFatherHigh Blood PressureFather ArthritisMotherHigh Blood PressureMotherRelationNameStatusCommentsFatherMother Social History Tobacco UseTypesPacks/DayYears UsedDateSmoking Tobacco: FormerSmokeless Tobacco: NeverSex and Gender InformationValueDate RecordedSex Assigned at BirthNot on fileLegal TezAsli1711/21/2012 5:07 PM ESTGender IdentityNot on fileSexual OrientationNot on file Last Filed Vital Signs Vital SignReadingTime TakenCommentsBlood Pressure--Pulse--Ujofpehmkax16.7 ??C (98 ??F)10/21/2019 10:00 AM ESTRespiratory Rate--Oxygen Saturation--Inhaled Oxygen Concentration--Fdvcaa848.9 kg (240 lb)10/21/2019 10:00 AM OIYMebila252.8 cm (5' 10 )10/21/2019 10:00 AM ESTBody Mass Index34.44010/21/2019 10:00 AM EST Plan of Treatment Not on file Insurance Care Teams Team MemberRelationshipSpecialtyStart DateEnd Date Rashad Patel DO [facility] - Exbvdjn67/24/18
== END 2025-09-14 11:31 | disposition home or self-care (01) ==
PROVIDERS: Emergency Provider Emergency Medicine; PCP Family Medicine
DX: M10.9 Gout, unspecified (principal)
CPT/HCPCS: 73630; 99283